=== PATIENT | female | born 1975 | race Hispanic/Latino ===

== ENCOUNTER 2024-10-17 10:17 | Emergency (ER) | payer OTHER, SELFPAY ==
[2024-10-17 10:19] VITALS: BP 124/74
--- NOTE | 2024-10-17 10:45 | ED.GENMED ---
History of Present Illness
General
Chief Complaint: Chest Pain
Source: patient
Time Seen by Provider: 10/17/24 10:27
History of Present Illness
History of Present Illness:
48-year-old female with no significant past medical history presenting to the emergency department for evaluation of left-sided chest discomfort which she states started yesterday described to be a tightening sensation accompanied with frequent
poking type sensation to the left anterior part of her chest right around the breast area accompanied with intermittent shortness of breath, none currently. Patient states she had similar episode about a year ago which resolved on its own but never
followed up further for this. Patient has no other associated symptoms including coughing, pleurisy, hemoptysis, fevers or infectious symptoms, other URI like symptoms, abdominal pain, nausea, vomiting, lower extremity edema. Social history was
noncontributory, family history noncontributory. Patient denies any recent travel or exogenous hormone use.
Past History
Past History
ED Past Medical History: None
ED Past Surgical History: None
Social History
Tobacco: Non-smoker
Alcohol: None
Drug: None
Personal:
Living: with family
Employment: Employed
Review of Systems
Review of Systems
All Other Systems: ROS reviewed and negative except as documented in HPI and ROS
Phy Exam
Physical Exam
Physical Exam:
GENERAL: Alert , in no apparent distress
HEAD: Normocephalic atraumatic
EYE: conjunctiva clear
NECK: Supple, no significant adenopathy.
ENT: o/p clr, mmm.
CARDIAC: Regular rate and rhythm, no murmur
LUNGS: Clear breath sounds bilaterally, no acute respiratory distress, no wheezes/rales/rhonchi
CHEST WALL: No focal areas of tenderness, no rashes
NEUROLOGICAL: Alert and oriented
SKIN: Warm and dry, skin intact.
MUSCULOSKELETAL: well perfused. No edema
PSYCH: Normal and appropriate interaction.
Scores
Heart Failure Risk
Heart Failure Risk Score: Not Applicable
Heart Score for Chest Pain Patients
STEMI patient?: No
History: Slightly or Non-Suspicious
ECG: Normal
Age: >45 - <65 years
Risk Factors: No Risk Factors
Troponin: </= Normal Limit
Heart Score for Chest Pain Patients: 1
Heart Score Risk: 2.5% MACE over next 6 weeks
Withdrawal Assessment of Alcohol
Withdrawal Assessment Completed?: Not applicable
Course
Orders/Labs/Results
Orders:
Orders
10/17/24 10:18
Electrocardiogram (*1) Urgent
Reason for Study: Chest Pain
EKG- Treatment ONCE
10/17/24 10:37
Cardiac Monitoring- Treatment ONCE
10/17/24 10:42
Complete Blood Count/With Diff Urgent
Comprehensive Metabolic Panel Urgent
D-Dimer Urgent
NT-proBNP Urgent
Troponin I Urgent
10/17/24 11:21
CR Chest - 2 Views Urgent
Comment:
Reason For Exam: left sided chest pain
Abnormal Lab Results
10/17/24
10:42
Glucose 129 H mg/dl
(70-99)
10/17/24 10:42
10/17/24 10:42
Vital Signs
Initial and Last Documented VS:
Initial Vital Signs
Temp Pulse Resp BP Pulse Ox
98.3 F 76 16 124/74 99
10/17/24 10:19 10/17/24 10:19 10/17/24 10:19 10/17/24 10:19 10/17/24 10:19
Last Documented Vital Signs
Temp Pulse Resp BP Pulse Ox
98.3 F 71 15 109/80 99
10/17/24 10:19 10/17/24 12:45 10/17/24 12:45 10/17/24 12:39 10/17/24 10:48
MDM/Problems Addressed
Differential Diagnosis Includes:
- Musculoskeletal chest wall pain
- Pleurisy
- Costochondritis
- ACS
- PE
- Pneumonia or other infectious etiology
- Pneumothorax
- Pleural effusion
MDM/Problems Addressed:
48-year-old female presented the ER for evaluation of left-sided chest pain that started yesterday and continuous prompting her to come to the ER today. No exacerbating or alleviating factors. Did not attempt medications prior to arrival. No
fevers. No risk factors for ACS or PE. Will check labs including troponin and D-dimer. Imaging based off of D-dimer results. Disposition pending.
*Radiology
Radiology exam reviewed: preliminary read by ED provider (Normal chest x-ray)
*Pulse Oximetry
SaO2: 99
Oxygen Mode of Delivery: Room air
Patient hypoxic: no
*EKG
Interpreted by ED Provider?: Yes
Heart Rate: 68
Rate: normal
Rhythm: sinus
[place]: normal axis
Ischemia: no ischemia
*Rope [employer]er Interpretation
Rate: normal
Heart Rate: 64
Rhythm: sinus
*Critical Care Note
Total Time (30-74mins, 75-104mins- exclusive of procedures): Not Applicable
Patient Management
Escalation/DeEscalation of care consider admission/obs:
Patient's workup is unremarkable for any acute pathologies. Troponin is within normal limits and patient has a negative D-dimer. Will refer patient to chest pain hotline for outpatient management. Aware of return precautions to the ER. Stable
for discharge home.
ED Attending Note
-
Portions of this chart may have been created with voice recognition software.� Occasional wrong word or��sound alike� substitutions may have occurred due to the inherent limitations of voice recognition software.
Discharge Plan
Departure
Patient Disposition: Home (Routine Discharge)
Date of Disposition: 10/17/24
Time of Disposition: 12:52
Patient with high blood pressure during this ER visit?: No
Discharge Problem:
Chest pain
Instructions: Chest Pain DCA Follow Up
Referrals:
Garrett Moreland MD [Family Provider, Internal Medicine]
Stand Alone Forms: Return to Work
Interventions
Interventions:
*Risk Screen - Suicide Last Done: 10/17/24 10:44
*General Assessment Last Done: 10/17/24 10:19
*Neglect/Abuse Screening Last Done: 10/17/24 10:19
*ED- Fall Risk Assessment Last Done: 10/17/24 10:33
*ED COVID-19 Vaccine History Last Done: 10/17/24 10:33
*Nursing Disposition Last Done: 10/17/24 12:58
ED- Cardiac Assessment Last Done: 10/17/24 10:33
Discharge Date and Time
Discharge Date/Time: 10/17/24 12:59
Print Language: GEORGIAN
[2024-10-17 10:51] LABS: % Basophils 0.5 % (0-2); % Eosinophils 1.2 % (0-6); % Immature Granulocytes 0.1 % (0-0.5); % Lymphocytes 28.4 % (20.5-51.1); % Monocytes 5.3 % (1.7-9.3); % Neutrophils 64.5 % (42.2-75.2); Absolute Eosinophils 0.1 10^3/uL (0-0.7); Absolute Lymphocytes 2.3 10^3/uL (1.2-3.4); Absolute Monocytes 0.4 10^3/uL (0.1-0.6); Absolute Neutrophils 5.2 10^3/uL (1.4-6.5); Hematocrit 39.3 % (37.0-47.0); Hemoglobin 13.5 g/dL (12.0-16.0); Mean Corp Hgb Conc. 34.4 g/dL (33.0-37.0); Mean Corpuscular Hgb 28.2 pg (27.0-31.0); Mean Platelet Volume 9.7 fL (7.4-10.4); Nucleated Red Blood Cells % 0 %; Platelet Count 216 10^3/uL (130-400); Red Blood Cell Count 4.79 10^6/uL (4.20-5.40); Red Cell Dist. Width 12.3 % (11.5-14.5); White Blood Cell Count 8.1 10^3/uL (4.8-10.8)
[2024-10-17 11:04] LABS: D-Dimer 0.32 ug/mlFEU (0.00-0.50)
[2024-10-17 11:05] LABS: ALT (SGPT) 19 U/L (0-35); AST (SGOT) 17 U/L (14-36); Albumin 4.3 g/dl (3.5-5.0); Alkaline Phosphatase 53 U/L (38-126); Blood Urea Nitrogen 17 mg/dl (7-17); Calcium 9.4 mg/dl (8.4-10.2); Carbon Dioxide 25 mmol/L (22-30); Chloride 107 mmol/L (98-107); Glucose 129 mg/dl (70-99); Potassium 3.8 mmol/L (3.5-5.1); Sodium 140 mmol/L (135-145); Total Bilirubin 0.7 mg/dl (0.2-1.3); Total Protein 6.8 g/dl (6.3-8.2); eGFR > 60.00
[2024-10-17 12:39] VITALS: BP 109/80
[2024-10-17 12:42] LABS: NT-proBNP 39.2 pg/ml; Troponin I < 0.012 ng/ml
== END 2024-10-17 12:59 | disposition home or self-care (01) ==
LOC: EMR 10:17
PROVIDERS: Physician Assistant Medical; EMERGENCY PHYSICIAN Emergency Medicine; FAMILY PHYSICIAN Internal Medicine
DX: R07.89 Other chest pain (principal)
CPT/HCPCS: 99285; 71046; 80053; 83880; 84484; 85025; 85379; 93005